=== PATIENT | male | born 1975 | race Caucasian/White ===

== ENCOUNTER 2021-09-17 16:55 | Inpatient (IN) ==
[2021-09-17 18:02] LABS: ABS Eosinophils 0.2 10^3/ul (0-0.6); ABS Lymphocytes 0.9 10^3/ul (1.0-4.8); ABS Monocytes 0.9 10^3/ul (0-0.8); Eosinophil % 1.8 %; Hematocrit 45 % (42-52); Hemoglobin 14.8 g/dL (14.0-18.0); Lymphocyte % 9.9 %; Mean Corpuscular HGB Conc 33 g/dL (31-36); Mean Corpuscular Hemoglobin 30 pg (27-31); Mean Corpuscular Volume 91 fL (80-94); Mean Platelet Volume 8.7 fL (7.4-10.4); Nucleated Red Blood Cells % 0.2; Platelet Count 236 10^3/uL (150-450); Red Blood Count 4.92 10^6 /uL (4.18-5.48); Red Cell Distribution Width 14 % (10-15)
[2021-09-17 18:20] LABS: Urine Benzodiazepine Screen None Detected (None Detect); Urine Cannabinoids Screen None Detected (None Detect); Urine Opiates Screen None Detected (None Detect)
[2021-09-17 18:33] LABS: Urine Appearance Clear; Urine Bilirubin Negative (Negative); Urine Blood Negative (Negative); Urine Color Straw; Urine Glucose Negative (Negative); Urine Ketones Negative (Negative); Urine Nitrite Negative (Negative); Urine Protein Negative (Negative); Urine Specific Gravity 1.002 (1.002-1.030); Urine Urobilinogen Negative (Negative)
[2021-09-17 18:51] LABS: ALT 62 U/L (7-52); AST 21 U/L (13-39); Acetaminophen < 15 mcg/mL; Albumin 4.6 g/dL (3.2-5.2); Albumin/Globulin Ratio 1.9 (1-3); Alcohol, S < 13 mg/dL (<13); Alkaline Phosphatase 60 U/L (35-149); Anion Gap 7 mmol/L (2-11); Blood Urea Nitrogen 10 mg/dL (6-24); CO2 Carbon Dioxide 29 mmol/L (22-32); Chloride 102 mmol/L (101-111); Globulin 2.4 g/dL (2-4); Glucose 84 mg/dL (70-100); Lithium 0.25 mmol/L (0.6-1.2); Potassium 3.9 mmol/L (3.5-5.0); Salicylate < 2.50 mg/dL (<30); Sodium 138 mmol/L (135-145); eGFR CKD-EPI 80.8 (>60)
[2021-09-17 19:05] LABS: TSH Ultra Thyroid Stim Horm 1.38 mcIU/mL (0.34-5.60)
[2021-09-17] MEDS ORDERED: Al Hydrox/Mg Hydrox/Simet LIQ 30 ML UDC PO PRN (20:07)
[2021-09-17] MEDS: Lithium Carbonate ER 450mg TAB PO SCH (22:32)
[2021-09-18] MEDS: Vitamin THERAPEUTIC TAB PO SCH (12:33)
[2021-09-18] MEDS: Lithium Carbonate ER 450mg TAB PO SCH (20:23)
[2021-09-19] MEDS: Vitamin THERAPEUTIC TAB PO SCH (08:50)
[2021-09-19] MEDS: Nicotine GUM 4MG FRUIT FLAVOR PO PRN ×2 (14:14→19:35)
[2021-09-19] MEDS: Lithium Carbonate ER 450mg TAB PO SCH (21:08)
[2021-09-20 08:51] LABS: HDL Cholesterol 65.9 mg/dL
[2021-09-20] MEDS: Vitamin THERAPEUTIC TAB PO SCH (09:45)
[2021-09-20] MEDS: Nicotine GUM 4MG FRUIT FLAVOR PO PRN ×2 (14:24→17:47)
[2021-09-20] MEDS: Lithium Carbonate ER 450mg TAB PO SCH (20:57)
[2021-09-21] MEDS: Vitamin THERAPEUTIC TAB PO SCH (09:02)
[2021-09-21] MEDS: Nicotine GUM 4MG FRUIT FLAVOR PO PRN ×2 (15:58→18:11)
[2021-09-21] MEDS: Lithium Carbonate ER 450mg TAB PO SCH (21:51)
[2021-09-22] MEDS: Vitamin THERAPEUTIC TAB PO SCH (10:21)
[2021-09-22] MEDS: Nicotine GUM 4MG FRUIT FLAVOR PO PRN ×2 (10:22→15:14)
[2021-09-22] MEDS: Lithium Carbonate ER 450mg TAB PO SCH (21:23)
[2021-09-23] MEDS: Vitamin THERAPEUTIC TAB PO SCH (08:50)
[2021-09-23] MEDS: Nicotine GUM 4MG FRUIT FLAVOR PO PRN ×2 (08:50→15:42)
[2021-09-23] MEDS: Lithium Carbonate ER 450mg TAB PO SCH (21:06)
[2021-09-24] MEDS: Vitamin THERAPEUTIC TAB PO SCH (09:00)
[2021-09-24] MEDS: Nicotine GUM 4MG FRUIT FLAVOR PO PRN (09:01)
[2021-09-24 09:25] VITALS: BP 115/79
== END 2021-09-24 12:11 | disposition home or self-care (01) | DRG 753 ==
LOC: ED 16:55 → BSU 20:07
PROVIDERS: ADMIT Psychiatry & Neurology Psychiatry; ATTEND Student in an Organized Health Care Education/Training Program